=== PATIENT | male | born 1975 | race Caucasian/White ===

== ENCOUNTER 2017-02-25 19:17 | Emergency (ER) | payer OTHER ==
--- NOTE | 2017-02-25 20:02 | ED GI/GU/ABDOMINAL COMPLAINT ---
History of Present Illness General Chief Complaint: Abdominal Pain/Flank Pain Stated Complaint: ABD PAIN Source: patient, old records Exam Limitations: no limitations Vital Signs & Intake/Output Vital Signs & Intake/Output Vital Signs Date Time Temp Pulse Resp B/P Pulse O2 O2 Flow FiO2 Ox Delivery Rate 02/25 2030 98.1 102 18 128/61 96 Room Air Room Air 02/25 1950 Room Air 02/25 1922 98.0 128 22 132/82 97 Allergies Coded Allergies: shellfish derived (UNKOWN 02/25/17) Reconcile Medications Albuterol Sulfate (Ventolin Hfa) 90 MCG HFA.AER.AD 2 PUF INH Q4H PRN ASTHMA ( Reported) Fluticasone/Salmeterol (Advair 250-50 Diskus) 250 MCG-50 MCG/DOSE BLST.W.DEV 1 PUF INH BID ASTHMA (Reported) Montelukast Sodium 10 MG TABLET 1 TAB PO DAILY ALLERGIES/ASTHMA (Reported) Omeprazole 40 MG CAPSULE.DR 1 CAP PO DAILY GI (Reported) Tiotropium [place] (Spiriva Respimat) 1.25 MCG/ACTUATION MIST.INHAL 2 PUFF INH BID ASTHMA (Reported) Triage Note: PER PT DIARRHEA SINCE AM, WHICH PT REPORTS IS NORMAL, HOWEVER WOKE UP AT 6 PM WITH SEVERE PAIN TO L ABD INTO CHEST AND BACK VOMITTED X 1. PAIN 10/`10 Triage Nurses Notes Reviewed? yes Onset: Morning Duration: hour(s):, constant, continues in ED, getting worse Timing: recent history Quality/Severity: sharpness, severe, vomiting Location: periumbilical Radiation: flank, RLQ Activities at Onset: eating Prior Abdominal Problems: similar symptoms Past Sexual History: Unobtainable at this time Modifying Factors: Improves With: rest. Worsens With: movement, palpation. Associated Symptoms: abdominal pain, loss of appetite, nausea/vomiting HPI: 1 day prior to admission patient had episode of loose watery stool. Morning of admission patient had decreased appetite later ate and had chills. He subsequently developed periumbilical sharp severe pain rating to the right lower quadrant and flank associated with nausea vomiting constant worse with movement palpation. He denies fever chest pain cough shortness of breath headache dysuria rash bleeding. Past History Travel History Traveled to [place] past 21 day No Medical History Any Pertinent Medical History? see below for history Neurological: NONE EENT: NONE Cardiovascular: NONE Respiratory: asthma Gastrointestinal: GERD Hepatic: NONE Renal: NONE Psychiatric: NONE Endocrine: NONE Surgical History Surgical History: hernia repair-umbilical Psychosocial History What is your primary language Kiswahili Tobacco Use: Current Daily Use Daily Tobacco Use Amount/Type: => 5 Cigarettes daily Family History Hx Contributory? No Review of Systems Review of Systems Constitutional: Reports: see HPI, chills, malaise. EENTM: Reports: no symptoms. Respiratory: Reports: no symptoms. Cardiovascular: Reports: no symptoms. GI: Reports: see HPI, abdominal pain, diarrhea, nausea, vomiting. Genitourinary: Reports: no symptoms. Musculoskeletal: Reports: no symptoms. Skin: Reports: no symptoms. Neurological/Psychological: Reports: no symptoms. Hematologic/Endocrine: Reports: no symptoms. Immunologic/Allergic: Reports: no symptoms. All Other Systems: Reviewed and Negative Physical Exam Physical Exam General Appearance: well developed/nourished, alert, awake, anxious, moderate distress, obese Head: atraumatic, normal appearance Eyes: Bilateral: normal appearance, PERRL, EOMI, normal inspection. Ears, Nose, Throat, Mouth: hearing grossly normal, moist mucous membrane Neck: normal inspection, supple, full range of motion, normal alignment Respiratory: normal breath sounds, chest non-tender, no respiratory distress, quiet respiration, lungs clear Cardiovascular: regular rate/rhythm, normal peripheral pulses, norml femoral pulses equa Peripheral Pulses: 4+ carotid (R), 4+ carotid (L) Gastrointestinal: normal bowel sounds, soft, no organomegaly, distention, guarding, tenderness Male Genitals: normal genitalia Back: normal inspection, normal range of motion Extremities: normal range of motion, no ligament instability Neurologic/Psych: no motor/sensory deficits, awake, alert, oriented x 3, normal gait, normal mood/affect, 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 No Severe Sepsis Present: No Septic Shock Present: No Progress Differential Diagnosis: appendicitis, biliary colic, bowel obstruction, hernia Plan of Care: Orders Procedure Date/time Status BLOOD CULTURE 02/25 2051 Active LACTIC ACID 02/25 2051 Complete Add-on Test (ER Only) 02/25 1954 Active URINALYSIS 02/25 1945 Complete PROTHROMBIN TIME 02/25 1945 Complete C-REACTIVE PROTEIN 02/25 1945 Complete TROPONIN LEVEL 02/26 1944 Complete HIGH SENSITIVITY CRP 02/26 1944 Complete COMPREHENSIVE METABOLIC PANEL 02/26 1944 Complete CBC WITHOUT DIFFERENTIAL 02/26 1944 Complete EKG 02/25 1923 Active Current Medications Sig/Justin Start time Last Medication Dose Stop Time Status Admin Ampicillin Sodium/ 3,000 MG ONCE ONE 02/25 2345 AC Sulbactam Sodium 02/26 0014 (Unasyn) Sodium Chloride 100 ML (Normal Saline 0.9%) Laboratory Tests 02/25/172123: Urine Color YEL, Urine Clarity CLEAR, Urine pH 7.0, Ur Specific [place] 1.020, Urine Protein NEG, Urine Ketones NEG, Urine Nitrite NEG, Urine Bilirubin NEG, Urine Urobilinogen 0.2, Ur Leukocyte Esterase NEG, Ur Microscopic SEDIMENT EXAMINED, Urine RBC 1-3, Urine WBC RARE, Ur Epithelial Cells FEW, Urine Bacteria RARE H, Urine Mucus MOD H, Urine Hemoglobin TRACE-INTACT H, Urine Glucose NEG 02/25/172110: Lactic Acid 0.7 02/25/171944: Anion Gap 13, Estimated GFR > 60, BUN/Creatinine Ratio 12.2, Glucose 132 H, Calcium 10.0, Total Bilirubin 0.8, AST 33, ALT 49, Alkaline Phosphatase 57, Troponin I < 0.01, C-Reactive Prot, Quant 4.0 H, C-React Prot High Sens > 15.0 H, Total Protein 7.4, Albumin 4.4, Globulin 3.0, Albumin/Globulin Ratio 1.5, PT 11.4, INR 1.09, CBC w Diff NO MAN DIFF REQ, RBC 5.28, MCV 88.4, MCH 29.7, RDW 13.9, MPV 10.5 H, Gran % 87.6 H, Lymphocytes % 8.5 L, Monocytes % 2.5, Eosinophils % 0.9, Basophils % 0.5, Absolute Granulocytes 13.6 H, Absolute Lymphocytes 1.3, Absolute Monocytes 0.4, Absolute Eosinophils 0.1, Absolute Basophils 0.1, PUBS MCHC 33.6 Microbiology 02/25 2045 BLOOD: Blood Culture - RECD 02/25 2045 BLOOD: Blood Culture - RECD Diagnostic Imaging: Viewed by Me: CT Scan. Discussed w/RAD: CT Scan. Radiology Impression: Focal diverticulitis of transverse colon. Initial ED EKG: normal axis, normal intervals, normal p-waves, normal QRS complex, normal sinus rhythm, no ST T wave changes Rhythm Strip: normal sinus rhythm Departure Departure Time of Disposition: [id number] Disposition: HOME OR SELF CARE Condition: Stable Clinical Impression Primary Impression: Diverticulitis Qualifiers: Diverticulitis site: large intestine Diverticulitis bleeding: without bleeding Diverticulitis complication: without perforation or abscess Qualified Code: K57.32 - Diverticulitis of large intestine without perforation or abscess without bleeding Referrals: UNKNOWN (PCP/Family) Departure Forms: Customer Survey General Discharge Information RELEASE- WORK Prescriptions: Current Visit Scripts Amoxicillin/Potassium Clav (Augmentin 875-125 Tablet) 1 TAB PO BID #20 TAB Ibuprofen 1 TAB PO Q6PRN PRN pain #50 TAB Hyoscyamine Sulfate (Levsin-Sl) 1-2 TAB SL Q4P PRN abd cramps #30 TAB Oxycodone HCl/Acetaminophen (Percocet 5-325 MG Tablet) 1-2 TAB PO Q6P PRN severe pain #20 TAB Ondansetron (Zofran Odt) 1 TAB SL TID PRN nausea #15 TAB
[2017-02-25 20:16] LABS: PT 11.4 SEC (9.4-12.5)
[2017-02-25 20:22] LABS: ABSOLUTE BASOPHIL COUNT 0.1 /CUMM (0.0-0.2); ABSOLUTE EOSINOPHIL COUNT 0.1 /CUMM (0.0-0.7); ABSOLUTE GRANULOCYTE CT 13.6 /CUMM (1.4-6.5); ABSOLUTE LYMPH COUNT 1.3 /CUMM (1.2-3.4); ABSOLUTE MONOCYTE COUNT 0.4 /CUMM (0.10-0.60); BASOPHIL % 0.5 % (0.0-2.0); EOSINOPHIL % 0.9 % (0-5); HEMATOCRIT 46.7 % (42-52); MEAN CORPUSCULAR HGB 29.7 PG (27.0-31.0); MEAN CORPUSCULAR HGB CONC 33.6 G/DL (33.0-37.0); MEAN CORPUSCULAR VOLUME 88.4 FL (80.0-94.0); MEAN PLATELET VOLUME 10.5 FL (7.4-10.4); PLATELET COUNT 218 /CUMM (130-400); RBC DISTRIBUTION WIDTH 13.9 % (11.5-14.5); RED BLOOD CELL CT 5.28 /CUMM (4.70-6.10); WHITE BLOOD CELL COUNT 15.5 /CUMM (4.8-10.8)
[2017-02-25 20:36] LABS: GRANULOCYTE % 87.6 % (42.2-75.2)
[2017-02-25] MEDS ORDERED: ADVAIR 250-501 EACH INH (20:47)
[2017-02-25] MEDS ORDERED: SPIRIVA RESPIMAT4 G1 INH (20:48)
[2017-02-25] MEDS ORDERED: OMEPRAZOLE40 M1 PO (20:48)
[2017-02-25] MEDS ORDERED: VENTOLIN HFA18 GM INH (20:48)
[2017-02-25] MEDS ORDERED: MONTELUKAST SOD10 M1 PO (20:48)
--- NOTE | 2017-02-25 23:21 | CT SCAN REPORT ---
EXAMINATION: CT ABDOMEN AND PELVIS WITH CONTRAST CLINICAL INFORMATION: Right lower quadrant pain. Periumbilical tenderness. Nausea and vomiting. COMPARISON: None TECHNIQUE: Patient has allergy to shellfish. Patient was premedicated with Benadryl and Solu-Medrol. Multidetector volumetric imaging was performed of the abdomen and pelvis after the IV administration of 95 mL of Optiray 320 intravenous contrast. Sagittal and coronal reformatted images were obtained on the technologist's workstation. DLP: 1009.32 mGy-cm FINDINGS: LUNG BASES: The visualized lung bases are unremarkable. LIVER, GALLBLADDER, AND BILIARY TREE: Diffuse low attenuation of liver parenchyma due to fatty change. No focal liver lesion. No intrahepatic bile duct dilatation. The gallbladder is unremarkable with no evidence of radiopaque gallstones, gallbladder wall thickening, or obvious pericholecystic inflammatory changes. PANCREAS: Unremarkable. SPLEEN: Unremarkable. ADRENAL GLANDS: Unremarkable. KIDNEYS AND URETERS: The kidneys are normal in size, shape, and attenuation. No hydronephrosis, hydroureter, or calculi seen. No perinephric stranding. BLADDER: Unremarkable. GASTROINTESTINAL TRACT: There are scattered diverticula throughout the colon. Most of the diverticula are in the left colon and sigmoid. There is however a large diverticulum at the proximal transverse colon which is inflamed consistent with a focal diverticulitis. Axial image 332 (3). There is no perforation or abscess. No bowel obstruction. Small moderate volume of stool in the colon. The appendix is normal. Small bowel loops are normal. ABDOMINAL WALL: Bilateral fat-containing inguinal hernia. The hernia on the right measures 2.9 cm and the hernia on the left measures 2.7 cm in transverse dimension LYMPH NODES: Normal. VASCULAR: Unremarkable. PELVIC VISCERA: Unremarkable. OSSEOUS STRUCTURES: Multilevel degenerative change with bridging osteophytes of lower thoracic spine IMPRESSION: Focal diverticulitis of transverse colon.
[2017-02-25] MEDS ORDERED: ZOFRAN ODT4 M1 SL (23:42)
[2017-02-25] MEDS ORDERED: IBUPROFEN800 M1 PO (23:42)
[2017-02-25] MEDS ORDERED: PERCOCET 5-3251 EACH PO (23:42)
[2017-02-25] MEDS ORDERED: AUGMENTIN 875-1 EACH PO (23:42)
[2017-02-25] MEDS ORDERED: LEVSIN-SL0.125 MG SL (23:42)
[2017-02-25 23:47] VITALS: BP 114/71
== END 2017-02-26 00:21 ==
LOC: ERH 19:17
PROVIDERS: Emergency Medicine
DX: K57.92 Diverticulitis of intestine, part unspecified, without perforation or abscess without bleeding (principal)
CPT/HCPCS: 74177; 81001; 87040; 93005; 93010; 96374; 96375; 96376; J1200; J2405; J2930